=== PATIENT | male | born 1960 | race Two or more races ===

== ENCOUNTER 2024-08-16 13:33 | Emergency (ER) | payer BC ==
[~2024-08-16] VITALS: Ht 170.2 cm; Wt 80.6 kg
[2024-08-16 13:34] VITALS: PULSE 79; TEMP 98.3
[2024-08-16 14:16] LABS: MEAN PLATELET VOLUME 7.6 FL (7.4-10.4); RED CELL DISTRIBUTION WIDTH 14.2 % (11.5-14.5)
[2024-08-16 14:38] LABS: CREATININE 0.98 MG/DL (0.60-1.10); TOTAL CARBON DIOXIDE 30.0 MMOL/L (24-32); eCRCL 70 ML/MIN; eGFR 77 ML/MIN
[2024-08-16] MEDS ORDERED: ONDA-243 PO (16:43)
[2024-08-16] MEDS ORDERED: iohexol 300mg/ml 100ml inj. ONE (16:43)
--- NOTE | 2024-08-16 16:43 | Physician Documentation ---
History of Present Illness Chief Complaint: Abdominal Pain Stated Complaint: ABD PAIN Time Seen by MD: 16:25 HPI This is a 64-year-old gentleman who presents for evaluation of diffuse abdominal pain, has been present for the last three days without any obvious trigger, trauma provocation. More so located in the upper abdomen. Worse with food intake. No particular palliating factors. Does reports severe nausea that does get worse when he eats. Had a single episode of emesis shortly prior to arrival. Did not attempt to treat it with the medication. He had multiple episodes of similar pain in the past but has been never been evaluated for it. Has not seen a GI specialist. Incidentally also reports three days of neck pain, worse with range of motion, no trauma, palliated with the position of comfort, did not attempt to treat it. Incidentally also reports that his abdomen is bigger, this makes him feel like he needs to take deep breaths. Denies any chest pain. Denies true symptoms a breath. History, review of systems, physical examination were obtained with the help of the official buggy runner. Longer Medication Reconciliation Allergies: Coded Allergies: No Known Allergies (Unverified , 08/16/24) Scheduled PRN ONDANSETRON ODT 4mg tablet (Ondansetron Odt), 1 TAB PO Q6H PRN PRN for nausea/vomiting Review of Systems ROS 10 point review of systems was performed and unless noted above in HPI is negative for acute process/complaint. Physical Exam Vital Signs: Temperature: 98.3, Source: Temporal, Heart Rate: 79, Respiratory Rate: 16, BP: 173/97, Pulse Oximetry: 96, Weight: 80.600 Physical Exam GENERAL: Awake, alert, oriented, GCS 15, no apparent distress, non-toxic appearing, answers questions, follows commands appropriately. HEENT: Atraumatic, normocephalic, pupils equal, extraocular muscles intact, sclerae anicteric, mucus membranes moist, oropharynx is clear, no stridor. NECK: supple, full active range of motion, trachea midline, no thyromegaly, no lymphadenopathy, no JVD. CARDIOVASCULAR: regular rate/rhythm, no murmurs/gallops/rubs, Pulses are 2+ in all extremities and symmetric. Capillary refill less than 2 seconds. PULMONARY: Nonlabored, good air movement ,no respiratory distress, speaking in full sentences, clear to auscultation bilaterally, no wheezing, no ronchi, no rales, no accessory muscle use. GASTROINTESTINAL: Soft, non-tender, non-distended, normal active bowel sounds, no organomegaly, no pulsatile masses, no CVA tenderness. NEUROLOGIC: Lucid with normal mental status. Normal facial symmetry. Moves all extremities symmetrically and with purpose. No truncal ataxia. Speech is fluid without evidence of dysarthria or aphasia, no focal deficits appreciated. MUSCULOSKELETAL: There is full range of motion of all extremities. There is no joint pain or joint swelling or joint erythema. There is no muscle pain or tenderness or swelling. EXTREMITIES: warm, well-perfused, no cyanosis, no clubbing, no edema, no acute deformities. Skin: warm, dry, no rashes or lesions, no jaundice, no petechiae orpurpura. No ecchymosis. PSYCHIATRIC: Normal affect, normal insight, normal concentration. Focused exam: [] Progress Results/Orders Results/Orders Orders - HATTIE HAYWARD DO Urinalysis, Cult If Indicated (08/16/24 13:43) Electrocardiogram (08/16/24 16:34) Ct Abdomen Pelvis (08/16/24 16:34) Hs Troponin I W Calculations (08/16/24 16:34) Hs Troponin I W Calculations (08/16/24 18:34) Ketorolac Trometh 30mg/Ml Vial (Toradol (08/16/24 16:35) Completed Orders - HATTIE HAYWARD DO Cbc/Diff (08/16/24 13:43) BMP (08/16/24 13:43) Lipase (08/16/24 13:43) CMP (08/16/24 13:43) Ondansetron Inj. (Zofran 4mg/2ml Vial) (08/16/24 16:35) Vital Signs 08/16/24 13:34 Temp 98.3 Pulse 79 Resp 16 B/P (MAP) 173/97 Pulse Ox 96 Laboratory Tests Test 08/16/24 14:02 White Blood Count 8.3 Red Blood Count 5.61 Hemoglobin 17.2 Hematocrit 49.3 Mean Corpuscular Volume 87.9 Mean Corpuscular Hemoglobin 30.6 Mean Corpuscular Hemoglobin Concent 34.8 Red Cell Distribution Width 14.2 Platelet Count 351 Mean Platelet Volume 7.6 Neutrophils (%) (Auto) 69.3 Lymphocytes (%) (Auto) 19.0 L Monocytes (%) (Auto) 7.3 Eosinophils (%) (Auto) 3.3 Basophils (%) (Auto) 1.1 H Neutrophils # (Auto) 5.8 Lymphocytes # (Auto) 1.6 Monocytes # (Auto) 0.6 Eosinophils # (Auto) 0.3 Basophils # (Auto) 0.1 CBC Comment Sodium Level 138 Potassium Level 3.0 *L Chloride Level 101 Carbon Dioxide Level 30.0 Anion Gap 7 L Blood Urea Nitrogen 14 Creatinine 0.98 Estimated GFR/1.73 m2 77 BUN/Creatinine Ratio 14.3 Glucose Level 121 H Calcium Level 9.4 Total Bilirubin 0.8 Aspartate Amino Transf (AST/SGOT) 22 Alanine Aminotransferase (ALT/SGPT) 41 Alkaline Phosphatase 92 Total Protein 7.2 Albumin 3.6 Globulin 3.6 Albumin/Globulin Ratio 1.0 L Lipase 28 Chemistry Comments EKG/XRAY/CT/US/VASC/MRI EKG : Additional Comment EKG was obtained and interpreted by myself shows sinus rhythm of 65, first- degree AV block, narrow QRS, no QT prolongation, normal axis, no STEMI Medical Decision Making Findings Facility Status: ED Holds, E process The plan was discussed with the patient, who demonstrates clear understanding of the plan and is in agreement with the plan unless otherwise noted in the chart. All questions have been answered, all concerns were addressed unless otherwise documented. I was available throughout their ED stay for frequent reassessment and questions. Differential Diagnoses (considered and possible or likely): [With respect to her abdominal pain, Differential diagnosis considered includes acute appendicitis, acute cholecystitis, pancreatitis, gastritis, PUD, diverticulitis, mesenteric ischemia, abdominal aortic aneurysm, bowel obstruction, enteritis, colitis, fecal impaction, volvulus, IBS, inflammatory bowel disease, specific food intolerance, peritonitis, perforated viscous, malignancy, UTI, abscess, and abdominal pain NOS. History, physical exam, and workup exclude many of the more serious causes listed above. With respect to neck pain, most likely represents musculoskeletal pain, muscle spasm, less likely radiculopathy, less likely fracture or subluxation of cervical spine] ??Differential Diagnoses (considered and unlikely, not requiring evaluation currently): [See above] MDM Data Please see HPI for the following: Independent Historians and external Records Review. Historian: [Patient] Independent Historians: ?[None] Medication Management: [Reviewed medication list] Social History and determinants: [Reviewed] Please see the body of the note for the following: Any independent interpretations of ECG, imaging studies. All vitals signs/haemodynamics, ordered tests were independently reviewed and interpreted by myself. Nursing triage complaint and vitals reviewed, additional nursing notes were reviewed as available and I agree unless otherwise noted or documented in contradiction in the chart Vital Signs: Independently reviewed Labs: Independently interpreted Imaging: Independently interpreted Old Medical Records: Independently reviewed, see HPI for relevant summary and information Pulse Oximetry: [95%] interpreted as [normal on room air] by me [Brake Lining Curer: [Regular Rate, Regular rhythm, no ectopy, NSR] reviewed and interpreted by me] Additionally notably showing: [Hemodynamically stable. Laboratory workup notable for hypokalemia of 3.0. Otherwise, no white count, normal lipase, normal renal function] initial and repeat troponins are negative. CT C-spine shows no acute fracture or dislocation. CT abdomen and pelvis shows div erticulitis, porcelain gallbladder is incidental finding. Tests considered but not ordered include: [Right upper quadrant ultrasound has been considerably symptoms are not consistent with cholecystitis] Social Determinants of Health Impact: Patient was evaluated in [facility] to healthcare due to below par ratio of patient to medical providers. [] Comorbid Conditions Impacting Present Evaluation and Care/Treatment: [None reported with the patient] Management Discussions with other Healthcare Providers: [] Treatment and Disposition Medication Management (Given or considered): [Nausea management, pain management]. See EMR for details Consideration for Hospitalization/Escalation/Deescalation of Care: Admission for observation has been considered, [however the patient is able to tolerate p.o., their symptoms are controlled, they are able to rely on oral medications, and their chief complaint/diagnosis can be managed on outpatient basis.] ?ED Course:?[] ?Shared decision making:?[] Code status:?FULL Please see the full Electronic Medical Record for full details of nursing documentation, medications list, other records of complete past medical history and conditions, vital signs, laboratory studies, and any radiologic study interpretations by radiologists. Portions of this note were completed using dragon dictation software and as a result there may exist minor errors in spelling. I have reviewed elements of past family and social history and agree as included in note. Departure Disposition: 01 HOME / SELF CARE / HOMELESS Impression: Primary Impression: Generalized abdominal pain Additional Impressions: Nausea and vomiting Neck pain Diverticulitis Porcelain gallbladder Condition: Stable Discharge Instructions: Cervical Sprain, Diverticulitis Additional Instructions: Your CT showed diverticulitis which could be the cause of your pain. Please take antibiotics as prescribed. Incidentally your CT also showed porcelain gallbladder. You will need an ultrasound that was done on an outpatient basis and likely speak with a surgeon to have it taken out, as has been person gallbladder increases your risk of gallbladder cancer. Referrals: NO PRIMARY CARE PROVIDER (PCP) Prescriptions Amox Tr/Potassium Clavulanate (Augmentin 875-125 Tablet) 1 Each Tablet 1 TAB PO Q12H for 10 Days, #20 TAB Prov: HATTIE HAYWARD DO 08/16/24 ONDANSETRON ODT 4mg tablet (ONDANSETRON ODT) 4 Mg Tab.rapdis 1 TAB PO Q6H PRN PRN for nausea/vomiting for 4 Days, #16 TAB 0 Refills Prov: HATTIE HAYWARD DO 08/16/24 Education Educated: Patient, Family Educated regarding: diagnosis, treatment, prognosis, need for follow up Signature Scribe Signature: No scribe Attestation: This note accurately reflects clinical decisions, work performed by myself, DO YESY Byrd NICHOLAS M DO Aug 16, 2024 16:43
[2024-08-16] MEDS: POTASSIUM BICARB 20meq eff tab 20 MEQ TABLET.EFF PO ONE (16:45)
[2024-08-16 16:54] LABS: LEUKOCYTE ESTERASE ,URINE NEGATIVE (Neg); NITRITES, URINE NEGATIVE (Neg); OCCULT BLOOD,URINE SMALL (Neg)
[2024-08-16 17:02] LABS: UA COLLECTION TYPE CLN CATCH MIDSTREAM
[2024-08-16 17:06] LABS: MUCUS STRANDS NONE SEEN /LPF (Neg); SQUAMOUS EPITHELIAL CELL,UR NONE SEEN /LPF (FEW)
[2024-08-16 17:07] LABS: AMORPHOUS PHOSPHATES 1+
[2024-08-16 17:08] LABS: PRO BRAIN NATRIURETIC PEPTIDE 55 PG/ML (0-125)
[2024-08-16] MEDS: ketorolac trometh 30MG/ML vial 30 MG/ML VIAL IV ONE (17:19)
[2024-08-16] MEDS: ondansetron/PF 4mg/2ml inj IV ONE (17:19)
--- NOTE | 2024-08-16 17:24 | RADIOLOGY REPORT ---
EXAM: CT CT CERVICAL SPINE INDICATION: Pain without trauma EXAM DATE: 08/16/2024 04:50 PM COMPARISON: None TECHNIQUE: Multiple axial CT images of the cervical spine were obtained using bone algorithm. Sagitta l and coronal reformatting was done. Bone and soft tissue windows were reviewed. Radiation Dose Information: CT Dose: CTDI volume is 19.0 mGy. Dose-length product is 411.8 mGy*cm FINDINGS: The cervical alignment is intact. There is reversal of the cervical lordosis. No acute cervical spine fracture is identified. The vertebral body heights are intact. No suspicious osseous lesions are yamilka ntified. Intervertebral disc space narrowing noted at C6-C7. No significant spinal stenosis. Multilevel neur al foraminal stenosis due to facet arthropathy. There is no prevertebral soft tissue swelling. There is a 9 mm low-density left thyroid nodule. Increased number of cervical lymph nodes bilaterally at all chante stations, subcentimeter in size. The lung apices are clear. IMPRESSION: 1. No evidence of acute cervical spine fracture or traumatic malalignment. 2. Multilevel cervical spondylosis. 3. Increased number of cervical lymph nodes at all chante stations without pathologic enlargement. Thi s could be reactive however the clinical scenario should dictate the need for additional workup and/o r follow-up imaging. All CT scans at this medical facility are performed using dose modulation techniques as appropriate t o a performed exam including the following: Automated exposure control was utilized; adjustment of th e MA and/or KV according to patient size; and use of iterative reconstruction technique.
--- NOTE | 2024-08-16 17:52 | RADIOLOGY REPORT ---
Exam: CT CT ABDOMEN PELVIS W/ IV CONTRAST History: Diffuse abdominal pain Comparison Study: None TECHNIQUE: Multidetector CT of the abdomen and pelvis with IV contrast. Axial, coronal and sagittal m ultiplanar reformats were obtained from the axial data set by the technologist. Radiation Dose Information: CT Dose: CTDI volume is 30.25 mGy. Dose-length product is 1656.79 mGy*cm FINDINGS: Bibasilar atelectasis. Borderline cardiomegaly. Gallbladder wall calcifications is noted. Liver, spleen, pancreas and adrenal glands unremarkable. Nonobstructing 4 mm right renal upper pole calculus. 1.2 cm right renal cysts with additional subcent imeter bilateral renal hypodense lesions that are too small to characterize. Bilateral ureters and ur inary bladder are unremarkable. Prostate measures 4 x 5.6 by 4.7 cm. Small hiatal hernia. Mild wall thickening of the stomach and proximal small bowel which is most likel y from inadequate distension. The remainder of the small bowel loops unremarkable. Appendix is unrem arkable. Descending colon and Sigmoid diverticulosis with Fat stranding adjacent to The sigmoid. Mild distal rectal wall thickening with mild wall thickening of the descending colon and sigmoid. Moderat e amount of fecal material within the ascending and transverse colons. No evidence of intraperitoneal free air or free fluid. No evidence of aortic aneurysm or dissection. Mild atherosclerotic calcification of the aorta and bi lateral iliacs. No significant mesenteric lymphadenopathy. Small fat containing umbilical and supraumbilical hernias with internal fat stranding. Small fat cont aining bilateral inguinal hernias. Small fat containing hernia within the left medial Upper abdominal rectus abdominus muscle. No destructive osseous lesions noted. Sclerotic focus over the left proxi mal femur which may represent bone islands/ blastic lesions. IMPRESSION: Descending colon and sigmoid diverticulosis with mild sigmoid diverticulitis. Wall thickening of the descending colon, sigmoid and rectum which may be due to inadequate distention with mild Colitis not excluded. Porcelain gallbladder. Small right renal cyst with nonobstructing right renal upper pole calculus. Enlarged prostate. Recommend correlation with PSA.
[2024-08-16] MEDS ORDERED: AMOX-117 PO (18:00)
[2024-08-16 18:16] VITALS: BP 158/84; O2SAT 98
[2024-08-16 18:32] VITALS: RESP 16
--- NOTE | 2024-08-17 06:54 | ELECTROCARDIOGRAPH REPORT ---
[facility] Test Date: 2024-08-16 Test Time: 16:44:02 Pat Name: JOSE A CHANG Department: EMERGENCY ROOM Room: Gender: M Reimbursement Rep: RASHEED : 1960 Requested By: HATTIE HAYWARD Order Number: [id number] Reading MD: Measurements Intervals [place] Rate: 65 P: 53 MA: 223 QRS: 11 QRSD: 104 T: 10 QT: 394 QTc: 410 Interpretive Statements Sinus rhythm Prolonged MA interval Consider right atrial enlargement Please click the below link to view image of tracing.
== END 2024-08-16 18:15 | disposition home or self-care (01) ==
LOC: ER 13:34
DX: K57.32 Diverticulitis of large intestine without perforation or abscess without bleeding (principal); R11.2 Nausea with vomiting, unspecified; M54.2 Cervicalgia
CPT/HCPCS: 36415; 72125; 74177; 80053; 81001; 83690; 83880; 84484; 85025; 93005; 96374; 96375; 99285; J1885; J2405; Q9967